=== PATIENT | female | born 1930 | race Caucasian/White ===

== ENCOUNTER → 2016-06-03 | Outpatient (REF) | payer MEDICARE, OTHER ==
[~2016-06-03] MED LIST: /MOXI40TA OR; ACET65TA OR; ALEV220C2 PO; ARIM1TAB4 PO; ASPI1TAB PO; ATEN100T OR; ATEN100T PO; BABY81CH OR; COMBVENT INH; DOXY100T OR; GLUC1000 OR; GLUC1000 PO; IMODIUM PO; K-TA10TA PO; MAGN400C2 PO; MICR10CA PO; PERC5TAB6 PO; PROBCAP4 PO; TESS200C PO; TYLE325T5 PO; TYLE650T30 PO; VICO5TAB OR; VITA100037 PO; [UNRECOGNIZED DRUG - OTHER] PO; compazine PO
== END ==
LOC: M SFHCLERA 19:43
PROVIDERS: ATTEND Nurse Practitioner Family
DX: L02.91 Cutaneous abscess, unspecified (principal)
CPT/HCPCS: 87070; 87077; 87186; G0463

== ENCOUNTER 2017-02-24 09:40 | Emergency (ER) | payer MEDICARE, OTHER ==
[~2017-02-24] VITALS: Ht 160 cm; Wt 11.4 kg
[~2017-02-24 09:40] MED LIST changes: +PERC5TAB12 PO; -PERC5TAB6 PO; -VITA100037 PO; +VITA100067 PO
[2017-02-24] MEDS ORDERED: OCUVTAB PO (09:59)
[2017-02-24 10:31] VITALS: BP 118/58
== END 2017-02-24 10:31 | disposition left against medical advice (07) ==
LOC: EDBD 09:40 → M ED 09:40
DX: S00.03XA Contusion of scalp, initial encounter (principal); W01.0XXA Fall on same level from slipping, tripping and stumbling without subsequent striking against object, initial encounter; Y92.531 Health care provider office as the place of occurrence of the external cause; Y93.89 Activity, other specified; Y99.8 Other external cause status; E11.621 Type 2 diabetes mellitus with foot ulcer; L97.509 Non-pressure chronic ulcer of other part of unspecified foot with unspecified severity; Z79.899 Other long term (current) drug therapy; Z79.82 Long term (current) use of aspirin; Z79.84 Long term (current) use of oral hypoglycemic drugs; Z88.8 Allergy status to other drugs, medicaments and biological substances
CPT/HCPCS: 11042; 99284; G0463